=== PATIENT | male | born 1935 | race Caucasian/White ===

== ENCOUNTER 2016-08-09 14:26 | Day surgery (SDC) | payer MEDICARE, MEDICAID ==
--- NOTE | 2016-08-19 07:10 | Operative Note ---
DATE OF PROCEDURE: 08/09/2016. PREOPERATIVE DIAGNOSIS: URGE INCONTINENCE. POSTOPERATIVE DIAGNOSIS: URGE INCONTINENCE AND ENLARGED PROSTATE WITH SYMPTOMS. PROCEDURE: Cystoscopy. ANESTHESIA: Local. INDICATIONS: This is a 81-year-old male with the above symptoms who presented for cystoscopic evaluation. PROCEDURE: Preoperative informed consent was obtained. Antibiotics were given. The patient was brought to the procedure room at [facility] and placed supine. The genitalia were prepped and draped sterilely, and the flexible cystoscopy was performed. The urethra appeared unremarkable to the level of the prostatic urethra. This showed significant middle lobe obstruction as well as moderate lateral lobe obstruction. The bladder was entered and inspected systematically. There was moderate bladder trabeculation noted. Both ureteral orifices had normal appearance and positioning. The bladder otherwise appeared unremarkable with no evidence of mass, calculus, foreign body, or mucosal abnormality. The scope was then withdrawn and the procedure was terminated. The patient tolerated it quite well. PLAN: We discussed management options regarding the urinary symptoms which appear to be caused by obstructive benign prostatic hypertrophy. We discussed medical therapy which apparently he has tried in the past but currently is not taking due to inefficacy. We further discussed transurethral resection of the prostate, laser vaporization of the prostate, microwave therapy, and various office-based procedures. Given the appearance of middle lobe and, to a lesser degree, lateral lobe obstruction, I have recommended that we move ahead with green light photovaporization of the prostate. The procedure was discussed in detail including the potential risks of incontinence, retention, bleeding, infection, and iatrogenic injury. He would like to proceed as soon as possible. Yasmany Cho M.D. Date Time Job Number: cc: Blanca Carroll
== END 2016-08-09 14:50 | disposition home or self-care (01) ==
LOC: HOP 14:26
PROVIDERS: ATTEND Urology
DX: N39.41 Urge incontinence (principal)

== ENCOUNTER 2017-05-30 13:40 | Emergency (ER) | payer MEDICARE, MEDICAID ==
[2017-05-30] MEDS ORDERED: ASPIRIN 81 MG CHEWABLE TABLET PO ONE (14:08)
[2017-05-30] MEDS ORDERED: NITROGLYCERIN 0.4MG SL TABLET #25 BTL SL PRN (14:08)
[2017-05-30 14:17] LABS: BASO % 0.3 % (0-6); EOS % 3.3 % (0-6); GRAN % 67.5 % (47-80); HEMATOCRIT 39.1 % (42.0-52.0); HEMOGLOBIN 12.7 gm/dl (14.0-18.0); LYMPH % 18.4 % (16-45); MEAN CELL VOLUME 92.7 fl (81-97); MEAN CORPUSCULAR HGB CONC 32.5 g/dl (32-36); MEAN PLATELET VOLUME 9.7 fl (7.4-10.4); MONO % 10.5 % (0-9); PLATELET COUNT 285 K/uL (130-400); RED BLOOD COUNT 4.22 M/uL (4.40-5.70); RED CELL DISTRIBUTION WIDTH 13.6 % (11.5-14.5); WHITE BLOOD COUNT W/O DIFF 6.7 K/uL (4.2-12.2)
[2017-05-30 14:39] LABS: BLOOD UREA NITROGEN 19 mg/dL (8-23); EST GLOMERULAR FILTRATION RATE > 60 mL/min
[2017-05-30 14:42] LABS: GLUCOSE,RANDOM 224 mg/dL (74-109)
[2017-05-30 14:45] LABS: CREATINE PHOSPHOKINASE 75 U/L (39-308)
[2017-05-30 14:46] LABS: CKMB 2.7 ng/mL (<6.73)
--- NOTE | 2017-05-30 15:43 | Emergency Department Record ---
History of Present Illness - General Chief Complaint: Chest Pain Stated Complaint: CHEST PAIN Time Seen by Provider: 05/30/17 14:03 Source: Patient Mode of Arrival: Wheelchair Limitations: No limitations - History of Present Illness Initial Comments: pt has been having cp that is getting progressively worse w cold and activity. it gets better w rest. it radiates into his neck and l arm. ntg helped it yesterday Complaint: Chest pain Onset/Timin -: Month(s) Onset: During rest, Other Pain Location: Substernal Pain Radiation: LUE, Neck Severity scale (1-10): 3 Quality: Sharp Consistency: Constant Improves With: Nothing Worsens With: Exertion Treatments Prior to Arrival: None - Related Data Home Medications Medication Instructions Recorded Confirmed Last Taken Amlodipine Besylate/Benazepril 1 tab PO DAILY 05/30/17 05/30/17 Unknown [Amlodipine-Benazepril 10-20 mg] Atenolol 25 mg PO DAILY 05/30/17 05/30/17 Unknown Glipizide [Glucotrol] 5 mg PO DAILY 05/30/17 05/30/17 Unknown Ipratropium/Albuterol Sulfate 1 - 2 puff IH TID 05/30/17 05/30/17 Unknown [Combivent] Levothyroxine Sodium [Levoxyl] 25 mcg PO DAILY 05/30/17 05/30/17 Unknown Multivitamin [Multiple Vitamins] 1 each PO DAILY 05/30/17 05/30/17 Unknown Nitroglycerin 0.4 mg SL ASDIR PRN 05/30/17 05/30/17 Unknown Pantoprazole Sodium [Protonix] 40 mg PO DAILY 05/30/17 05/30/17 Unknown Pitavastatin Calcium [Livalo] 0.5 mg PO DAILY 05/30/17 05/30/17 Unknown Tramadol HCl [Ultram] 50 mg PO DAILY 05/30/17 05/30/17 Unknown Venlafaxine HCl [Effexor Xr] 50 mg PO Q48H 05/30/17 05/30/17 Unknown Allergies Allergy/AdvReac Type Severity Reaction Status Date / Time Penicillins Allergy Unknown SWELLING Unverified 05/03/17 13:45 (GENERAL) Travel Screening - Travel/Exposure Within Last 30 Days Have you traveled within the last 30 days?: No Review of Systems Reviewed: No additional complaints except as noted below Constitutional: Reports: As per HPI. Denies: Chills, Fever, Malaise, Night sweats, Weakness, Weight change Eyes: Reports: As per HPI. Denies: Eye discharge, Eye pain, Photophobia, Vision change ENT: Reports: As per HPI. Denies: Congestion, Dental pain, Ear pain, Epistaxis , Hearing loss, Throat pain Respiratory: Reports: As per HPI. Denies: Cough, Dyspnea, Hemoptysis, Stridor, Wheezes Cardiovascular: Reports: As per HPI. Denies: Arrhythmia, Chest pain, Dyspnea on exertion, Edema, Murmurs, Orthopnea, Palpitations, Paroxysmal nocturnal dyspnea, Rheumatic Fever, Syncope Endocrine: Reports: As per HPI. Denies: Fatigue, Heat or cold intolerance, Polydipsia, Polyuria Gastrointestinal: Reports: As per HPI. Denies: Abdominal pain, Constipation, Diarrhea, Hematemesis, Hematochezia, Melena, Nausea, Vomiting Genitourinary: Reports: As per HPI. Denies: Dysuria, Frequency, Hematuria, Incontinence, Retention, Testicular pain, Testicular mass, Urgency Musculoskeletal: Reports: As per HPI. Denies: Arthralgia, Back pain, Gout, Joint swelling, Myalgia, Neck pain Skin: Reports: As per HPI. Denies: Bruising, Change in color, Change in hair/ nails, Lesions, Pruritus, Rash Neurological: Reports: As per HPI. Denies: Abnormal gait, Confusion, Headache, Numbness, Paresthesias, Seizure, Tingling, Tremors, Vertigo, Weakness Psychiatric: Reports: As per HPI. Denies: Anxiety, Auditory hallucinations, Depression, Homicidal thoughts, Suicidal thoughts, Visual hallucinations Hematological/Lymphatic: Reports: As per HPI. Denies: Anemia, Blood Clots, Easy bleeding, Easy bruising, Swollen glands Past Medical History - SOCIAL HISTORY Smoking Status: Former smoker Alcohol Use: None Drug Use: None - RESPIRATORY Hx Respiratory Disorders: Yes Hx COPD: Yes - CARDIOVASCULAR Hx Cardio Disorders: Yes Hx Chest Pain: Yes Hx Vascular Disease: Yes Hx Coronary Stent: Yes - NEURO Hx Neuro Disorders: Yes Hx Dizziness: Yes Hx Neuropathy: Yes (both hands) - GI Hx GI Disorders: Yes Hx Abdominal Pain: Yes Hx Nausea/Vomiting: Yes - Hx Genitourinary Disorders: Yes Hx Prostate Problems: Yes (frequency) Hx Renal Disease: Yes (benign renal mass) - ENDOCRINE Hx Endocrine Disorders: Yes Hx Diabetes: Yes - MUSCULOSKELETAL Hx Musculoskeletal Disorders: Yes Hx Back Injury: Yes (fell off a latter) - PSYCH Hx Psych Problems: Yes Hx Anxiety: Yes Hx Depression: Yes - HEMATOLOGY/ONCOLOGY Hx Hematology/Oncology Disorders: No Family Medical History Any Significant Family History?: Yes Hx Diabetes: Father Hx Heart Disease: Mother Hx Resp Disorders: Mother Physical Exam - General General Appearance: Alert, Oriented x3, Cooperative, Mild distress - Head Head exam: Normal inspection - Eye Eye exam: Normal appearance, PERRL, EOMI Pupils: Normal accommodation - ENT ENT exam: Normal exam, Mucous membranes moist, Normal external ear exam, Normal orophraynx Ear exam: Normal external inspection. negative: External canal tenderness Nasal Exam: Normal inspection. negative: Discharge, Sinus tenderness Mouth exam: Normal external inspection, Tongue normal Teeth exam: Normal inspection. negative: Dental caries Throat exam: Normal inspection. negative: Tonsillar erythema, Tonsillar exudate - Neck Neck exam: Normal inspection, Full ROM. negative: Tenderness - Respiratory Respiratory exam: Normal lung sounds bilaterally. negative: Respiratory distress - Cardiovascular Cardiovascular Exam: Regular rate, Normal rhythm, Normal heart sounds - GI/Abdominal GI/Abdominal exam: Soft, Normal bowel sounds. negative: Tenderness - Rectal Rectal exam: Deferred - exam: Deferred - Extremities Extremities exam: Normal inspection, Full ROM, Normal capillary refill. negative: Tenderness - Back Back exam: Reports: Normal inspection, Full ROM. Denies: Muscle spasm, Rash noted, Tenderness - Neurological Neurological exam: Alert, CN II-XII intact, Normal gait, Oriented X3 - Psychiatric Psychiatric exam: Normal affect, Normal mood - Skin Skin exam: Dry, Intact, Normal color, Warm Course Vital Signs 05/30/17 13:44 Temperature 98.0 F Pulse Rate 78 Respiratory 16 Rate Blood Pressure 137/94 Pulse Ox 97 Medical Decision Making - Lab Data Result diagrams: 05/30/17 13:50 05/30/17 13:50 Lab Results 05/30/17 05/30/17 Range/Units 13:50 13:50 WBC 6.7 (4.2-12.2) K/uL RBC 4.22 L (4.40-5.70) M/uL Hgb 12.7 L (14.0-18.0) gm/dl Hct 39.1 L (42.0-52.0) % MCV 92.7 (81-97) fl MCH 30.0 (27-33) pg MCHC 32.5 (32-36) g/dl RDW 13.6 (11.5-14.5) % Plt Count 285 (130-400) K/uL MPV 9.7 (7.4-10.4) fl Gran % 67.5 (47-80) % Lymphocytes % 18.4 (16-45) % Monocytes % 10.5 H (0-9) % Eosinophils % 3.3 (0-6) % Basophils % 0.3 (0-6) % Sodium 137 (136-145) mmol/L Potassium 4.3 (3.4-4.5) mmol/L Chloride 101 (98-107) mmol/L Carbon Dioxide 25.0 (22-29) mmol/L Anion Gap 11.0 (7-16) BUN 19 (8-23) mg/dL Creatinine 1.0 (0.7-1.2) mg/dL Estimated GFR > 60 mL/min Random Glucose 224 H (74-109) mg/dL Calcium 9.1 (8.8-10.2) mg/dL Creatine Kinase 75 (39-308) U/L CK-MB (CK-2) 2.7 (<6.73) ng/mL Troponin T 0.023 H (0-0.010) ng/mL Disposition Disposition: Transfer Clinical Impression: Unstable angina Disposition: Acute Care Hospital Transfer Transfer To: [facility] 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
--- NOTE | 2017-05-30 18:33 | Emergency Department Record ---
History of Present Illness - General Chief Complaint: Chest Pain Stated Complaint: CHEST PAIN Time Seen by Provider: 05/30/17 14:03 Source: Patient Mode of Arrival: Wheelchair Limitations: No limitations - History of Present Illness Onset/Timin -: Month(s) Onset: During rest, Other Pain Location: Substernal Pain Radiation: LUE, Neck Severity scale (1-10): 3 Quality: Sharp Consistency: Constant Improves With: Nothing Worsens With: Exertion Treatments Prior to Arrival: None - Related Data Home Medications Medication Instructions Recorded Confirmed Last Taken Amlodipine Besylate/Benazepril 1 tab PO DAILY 05/30/17 05/30/17 Unknown [Amlodipine-Benazepril 10-20 mg] Atenolol 25 mg PO DAILY 05/30/17 05/30/17 Unknown Glipizide [Glucotrol] 5 mg PO DAILY 05/30/17 05/30/17 Unknown Ipratropium/Albuterol Sulfate 1 - 2 puff IH TID 05/30/17 05/30/17 Unknown [Combivent] Levothyroxine Sodium [Levoxyl] 25 mcg PO DAILY 05/30/17 05/30/17 Unknown Multivitamin [Multiple Vitamins] 1 each PO DAILY 05/30/17 05/30/17 Unknown Nitroglycerin 0.4 mg SL ASDIR PRN 05/30/17 05/30/17 Unknown Pantoprazole Sodium [Protonix] 40 mg PO DAILY 05/30/17 05/30/17 Unknown Pitavastatin Calcium [Livalo] 0.5 mg PO DAILY 05/30/17 05/30/17 Unknown Tramadol HCl [Ultram] 50 mg PO DAILY 05/30/17 05/30/17 Unknown Venlafaxine HCl [Effexor Xr] 50 mg PO Q48H 05/30/17 05/30/17 Unknown Allergies Allergy/AdvReac Type Severity Reaction Status Date / Time Penicillins Allergy Unknown SWELLING Unverified 05/03/17 13:45 (GENERAL) Travel Screening - Travel/Exposure Within Last 30 Days Have you traveled within the last 30 days?: No Review of Systems Constitutional: Reports: As per HPI. Denies: Chills, Fever, Malaise, Night sweats, Weakness, Weight change Eyes: Reports: As per HPI. Denies: Eye discharge, Eye pain, Photophobia, Vision change ENT: Reports: As per HPI. Denies: Congestion, Dental pain, Ear pain, Epistaxis , Hearing loss, Throat pain Respiratory: Reports: As per HPI. Denies: Cough, Dyspnea, Hemoptysis, Stridor, Wheezes Cardiovascular: Reports: As per HPI. Denies: Arrhythmia, Chest pain, Dyspnea on exertion, Edema, Murmurs, Orthopnea, Palpitations, Paroxysmal nocturnal dyspnea, Rheumatic Fever, Syncope Endocrine: Reports: As per HPI. Denies: Fatigue, Heat or cold intolerance, Polydipsia, Polyuria Gastrointestinal: Reports: As per HPI. Denies: Abdominal pain, Constipation, Diarrhea, Hematemesis, Hematochezia, Melena, Nausea, Vomiting Genitourinary: Reports: As per HPI. Denies: Dysuria, Frequency, Hematuria, Incontinence, Retention, Testicular pain, Testicular mass, Urgency Musculoskeletal: Reports: As per HPI. Denies: Arthralgia, Back pain, Gout, Joint swelling, Myalgia, Neck pain Skin: Reports: As per HPI. Denies: Bruising, Change in color, Change in hair/ nails, Lesions, Pruritus, Rash Neurological: Reports: As per HPI. Denies: Abnormal gait, Confusion, Headache, Numbness, Paresthesias, Seizure, Tingling, Tremors, Vertigo, Weakness Psychiatric: Reports: As per HPI. Denies: Anxiety, Auditory hallucinations, Depression, Homicidal thoughts, Suicidal thoughts, Visual hallucinations Hematological/Lymphatic: Reports: As per HPI. Denies: Anemia, Blood Clots, Easy bleeding, Easy bruising, Swollen glands Past Medical History - SOCIAL HISTORY Smoking Status: Former smoker Alcohol Use: None Drug Use: None - RESPIRATORY Hx Respiratory Disorders: Yes Hx COPD: Yes - CARDIOVASCULAR Hx Cardio Disorders: Yes Hx Chest Pain: Yes Hx Vascular Disease: Yes Hx Coronary Stent: Yes - NEURO Hx Neuro Disorders: Yes Hx Dizziness: Yes Hx Neuropathy: Yes (both hands) - GI Hx GI Disorders: Yes Hx Abdominal Pain: Yes Hx Nausea/Vomiting: Yes - Hx Genitourinary Disorders: Yes Hx Prostate Problems: Yes (frequency) Hx Renal Disease: Yes (benign renal mass) - ENDOCRINE Hx Endocrine Disorders: Yes Hx Diabetes: Yes - MUSCULOSKELETAL Hx Musculoskeletal Disorders: Yes Hx Back Injury: Yes (fell off a latter) - PSYCH Hx Psych Problems: Yes Hx Anxiety: Yes Hx Depression: Yes - HEMATOLOGY/ONCOLOGY Hx Hematology/Oncology Disorders: No Family Medical History Any Significant Family History?: Yes Hx Diabetes: Father Hx Heart Disease: Mother Hx Resp Disorders: Mother Physical Exam - General Limitations: No limitations Course Vital Signs 05/30/17 05/30/17 05/30/17 13:44 16:07 17:47 Temperature 98.0 F Pulse Rate 78 Pulse Rate [ 73 74 Candles Pourer ] Respiratory 16 18 20 Rate Blood Pressure 137/94 Blood Pressure 166/84 146/84 [Right Arm] Pulse Ox 97 96 97 - Reevaluation(s) Reevaluation #1: 05/30/17 18:32 pt has no cp now Medical Decision Making - Lab Data Result diagrams: 05/30/17 13:50 05/30/17 13:50 Lab Results 05/30/17 05/30/17 Range/Units 13:50 13:50 WBC 6.7 (4.2-12.2) K/uL RBC 4.22 L (4.40-5.70) M/uL Hgb 12.7 L (14.0-18.0) gm/dl Hct 39.1 L (42.0-52.0) % MCV 92.7 (81-97) fl MCH 30.0 (27-33) pg MCHC 32.5 (32-36) g/dl RDW 13.6 (11.5-14.5) % Plt Count 285 (130-400) K/uL MPV 9.7 (7.4-10.4) fl Gran % 67.5 (47-80) % Lymphocytes % 18.4 (16-45) % Monocytes % 10.5 H (0-9) % Eosinophils % 3.3 (0-6) % Basophils % 0.3 (0-6) % Sodium 137 (136-145) mmol/L Potassium 4.3 (3.4-4.5) mmol/L Chloride 101 (98-107) mmol/L Carbon Dioxide 25.0 (22-29) mmol/L Anion Gap 11.0 (7-16) BUN 19 (8-23) mg/dL Creatinine 1.0 (0.7-1.2) mg/dL Estimated GFR > 60 mL/min Random Glucose 224 H (74-109) mg/dL Calcium 9.1 (8.8-10.2) mg/dL Creatine Kinase 75 (39-308) U/L CK-MB (CK-2) 2.7 (<6.73) ng/mL Troponin T 0.023 H (0-0.010) ng/mL Disposition Clinical Impression: Unstable angina Disposition: Acute Care Hospital Transfer Quality - Quality Measures Quality Measures: N/A - Blood Pressure Screening Does Patient Have Any of the Following: No Blood Pressure Classification: Hypertensive Reading Systolic Measurement: 137 Diastolic Measurement: 94 Screening for High Blood Pressure: < First Hypertensive BP, F/U Documented > [ G8950] First Hypertensive Follow-up Interventions: Follow-up with rescreen GT 1 day and LT 4 weeks.
--- NOTE | 2017-05-31 09:44 | RADIOLOGY REPORT ---
EXAM: CHEST, TWO VIEWS HISTORY: CHEST PAIN AND TIGHTNESS FOR A MONTH, SYMPTOMS GETTING WORSE TODAY. TECHNIQUE: PA and lateral views of the chest were obtained. Comparison: Two view chest 04/04/17. FINDINGS: The heart size is normal. Postop valve repair as before. The lungs appear somewhat hyperinflated particularly on the view as before, likely representing underlying COPD. No definite acute infiltrate is seen today. No pleural effusion or pneumothorax evident. Spurring at the acromioclavicular joints as well as in the thoracic spine. IMPRESSION: 1. HYPERINFLATION CONSISTENT WITH COPD BEFORE. 2. POSTOP VALVE PROSTHESIS BEFORE. 3. DEGENERATIVE CHANGE IN THE SPINE AND SHOULDERS. JOB NUMBER: [id number] MTDD
== END 2017-05-30 19:01 | disposition short-term general hospital (02) ==
LOC: ER 13:40
DX: I20.0 Unstable angina (principal); J44.9 Chronic obstructive pulmonary disease, unspecified; E11.9 Type 2 diabetes mellitus without complications; Z87.891 Personal history of nicotine dependence
CPT/HCPCS: 71020; 80048; 82550; 82553; 84484; 85025; 93005; 93010; 99285